=== PATIENT | male | born 1985 ===

== ENCOUNTER 2019-03-25 12:00 | Emergency (ER) | payer OTHER ==
[~2019-03-25] VITALS: Ht 180.3 cm; Wt 74.8 kg
== END 2019-03-25 19:04 | disposition home or self-care (01) ==
LOC: ER 12:00
DX: M62.830 Muscle spasm of back (principal); M94.0 Chondrocostal junction syndrome [Tietze]; M54.2 Cervicalgia; R07.89 Other chest pain

== ENCOUNTER 2019-04-06 20:50 | Emergency (ER) | payer OTHER ==
[~2019-04-06] VITALS: Ht 180.3 cm; Wt 72.6 kg
== END 2019-04-07 00:06 | disposition home or self-care (01) ==
LOC: ER 20:50
DX: S62.617A Displaced fracture of proximal phalanx of left little finger, initial encounter for closed fracture (principal); W21.05XA Struck by basketball, initial encounter; Y93.67 Activity, basketball; Y92.89 Other specified places as the place of occurrence of the external cause; Y99.8 Other external cause status

== ENCOUNTER 2019-10-29 07:50 | Emergency (ER) | payer OTHER ==
[~2019-10-29] VITALS: Ht 172.7 cm; Wt 72.6 kg
== END 2019-10-29 12:55 | disposition home or self-care (01) ==
LOC: ER 07:50
DX: K29.70 Gastritis, unspecified, without bleeding (principal)